=== PATIENT | male | born 1960 | race African-American/Black ===

== ENCOUNTER 2021-02-18 04:38 | Emergency (ER) | payer MEDICAID ==
[~2021-02-18] VITALS: Ht 167.6 cm; Wt 68.0 kg
[2021-02-18 04:50] VITALS: BP 160/105
[2021-02-18] MEDS ORDERED: P50 MT (05:56)
[2021-02-18] MEDS ORDERED: DIPH25CA83 PO (05:56)
== END 2021-02-18 07:02 | disposition home or self-care (01) ==
LOC: ER 04:38
DX: T78.3XXA Angioneurotic edema, initial encounter (principal); E78.00 Pure hypercholesterolemia, unspecified; I10 Essential (primary) hypertension; Z98.890 Other specified postprocedural states
CPT/HCPCS: 99283